=== PATIENT | female | born 1955 | race Hispanic/Latino ===

== ENCOUNTER 2025-03-23 05:21 | Emergency (ER) | payer OTHER ==
[2025-03-23] MEDS ORDERED: DIPHENHYDRAMINE 50 MG/ML VIAL ONE (05:24)
[2025-03-23] MEDS ORDERED: METHYLPREDNISOLONE 125 MG INJ ONE (05:24)
[2025-03-23] MEDS ORDERED: NA CHLORIDE 0.9% 1,000 ML ONE (05:24)
[2025-03-23] MEDS ORDERED: FAMOTIDINE 20 MG/2 ML VIAL IV ONE (05:24)
--- OUTSIDE RECORDS SUMMARY | 2025-03-23 05:26 | XMS REPORT | Continuity of Care Document ---
Author Name Unknown Address [address] [facility] [address] [place], [place] [id number] [place] [address] Address [address] [facility]. [address] [place] [address] Care Team Providers Care Retort Condenser Attendant Name Role Phone ALANNA CARREON Attending Clinician Unavailable JONNY RAINES Attending Clinician Unavailable TALI COELLO Attending Clinician Unavailable 1, [facility] Attending Clinic farhana Unavailable JULIA MOYA Attending Clinician Unavailable LAB90 Attending Clinician Unavailable MAC, EKG- Attending Clinician Unavailable TOMOGRAPHY, [facility] Attending Cl inician Unavailable MARCELA CARR Attending Clinician Unavailable SAUD LAI Attending Clinician Unavailable MD BERYL Attending Clinician Unavailab Bates Attending Clinician Unavailable PL, TECH 1 Attending Clinician Unavailable JENNA GONZALEZ Attending Clinician Unavailable MARCELO RHODES Attending Clinician Unavailable DALTON SHEFFIELD Attending Clinician Unavailable JONES DIALLO Attending Clinician Unava ilable ANDREW SPEARS Attending Clinician Unavail able LAB47 Attending Clinician Unavailable JOHN PARRISH Attending Clinician Unavailable CHRISTINA HARTMAN Attending Clinician Unavamone mazariegos AMBREEN_FARHANA Attending Clinician Unavailable A_Byrd Attending Clinician Unavailable AMBREEN_FARHANA Admitting Clinician Unavailable A_Byrd Admitting Clinician Unavailable Payers Payer Name Policy Type Policy Number Effective Date Expirati on Date Source [employer] [facility] [id number] HMO 7 [id number] 2024 00:00:00 [facility] FFS 5 [id number] 2023 00:00:00 HUMANA 3 [id number] 2014 00:00:00 Problems Condition Name Condition Details Condition Category Status Onset Date Resolution Date Last Treatment Date Treating Clinician Comments Source Urinary incontinen ce Urinary incontinen ce Disease Active 2023-11- 00:00: 00 Soledad Montanoold - Externa l Overweight (BMI 25.0-29.9) Overweight (BMI 25.0-29.9) Disease Active 06-29 00:00: 00 Soledad Montanoold - Externa l Right middle lobe pulmonary nodule Right middle lobe pulmonary nodule Disease Active 06-29 00:00: 00 Overview: Formattin g of this note might be different from the original. CT scan done 02/19/2024 Soledad Seybold - Externa l Shortness of breath Shortness of breath Disease Active 12-30 00:00: 00 Soledad Uriosteguiybold - Externa l Scoliosis Scoliosis Disease Active 12-30 00:00: 00 Soledad Seybold - Externa l Hepatic cyst Hepatic cyst Disease Active 11-10 00:00: 00 Overview: Formattin g of this note might be different from the original. CT scan 02/19/2024 Soledad Seybold - Externa l Nausea - Unchanged Nausea - Unchanged Disease Active 12-16 00:00: 00 Soledad Montanoold - Externa l Chronic pain of right knee - Not Controlled Chronic pain of right knee - Not Controlled Disease Active 2 00:00: 00 Soledad Seybold - Externa l Prediabete s - Unchanged Prediabete s - Unchanged Disease Active 2- 00:00: 00 Soledad Seybold - Externa l Primary hypertensi on - Not Controlled Primary hypertensi on - Not Controlled Disease Active 2- 00:00: 00 Soledad Seybold - Externa l History of hypertensi on History of hypertensi on Disease Active 2 00:00: 00 Soledad Seybold - Externa l History of prediabete s History of prediabete s Disease Active 2- 00:00: 00 Soledad Seybold - Externa l Osteoporos is Osteoporos is Disease Active 2013-11- 00:00: 00 Soledad Seybold - Externa l S/P hysterecto my S/P hysterecto my Disease Active 2013-11 00:00: 00 Sloedad Muñoz - Externa l SONALI on CPAP SONALI on CPAP Disease Active Soledad Muñoz - Externa l Social History Social Habit Start Date Stop Date Quantity Comments Source Gender identity 2022-12-13 08:13:06 Identifies as female gender (finding) Soledad Muñoz - External Sexual orientation 2022-12-13 08:13:06 Heterosexual (finding) Soledad Muñoz - External ASSERTION Not Soledad Muñoz - External History of Occupation Soledad Muñoz - External Alcoholic beverage intake 2025-02-16 00:00:00 2025-02-16 00:00:00 Current drinker of alcohol (finding) Soledad Muñoz - External History of Social function 2024-06-29 00:00:00 2024-06-29 00:00:00 Soledad Muñoz - External Education 2024-06-29 00:00:00 2024-06-29 00:00:00 16 Soledad Muñoz - External Alcohol Comment 2024-06-29 00:00:00 2024-06-29 00:00:00 occasionally Soledad Muñoz - External Alcohol intake 2023-12-30 00:00:00 2023-12-30 00:00:00 0 /d Soledad Muñoz - External Tobacco use and exposure 2014-09-12 00:00:00 2014-09-12 00:00:00 Smokeless tobacco non-user Soledad Muñoz - External Sex 2013-06-02 12:47:22 2013-06-02 12:47:22 Female (finding) Soledad Muñoz - External Sex assigned at 1955 00:00:00 1955 00:00:00 F Soledad Muñoz - External Smoking Status Start Date Stop Date Source Never smoked tobacco Soledad Cummings External Medications Ordered Medication Name Filled Medication Name Start Date Stop Date Current Medication? Ordering Clinician Indication Dosage Frequency Signature (SIG) Comments Components Source Albuterol HFA 108 (90 Base) MCG/ACT IN AERS 02-04 00:00: 00 Yes [id number] 2{puff} Q.25D Inhale 2 puffs into the lungs every 6 hours as needed for wheezing. Soledad pena Albuterol HFA 108 (90 Base) MCG/ACT IN AERS 2-04 00:00: 00 Yes [id number] 2{puff} Q.25D Inhale 2 puffs into the lungs every 6 hours as needed for wheezing or shortness of breath. Soledad pena Tobramycin- dexAMETHaso ne (TobraDex) 0.3-0.1 % ophthalmic Suspension 1- 00:00: 00 Yes 1 drop right eye 4 times per day for 7 days, then 2 times per day until it runs out. Soledad pena FLUTICASONE PROPIONATE, NASAL, 50 MCG/ACT nasal Suspension 2023-11 0-04 00:00: 00 Yes [id number] 50ug QD Use 1 spray (50 mcg total) in each nostril daily. Soledad pena Alendronate Sodium (Fosamax) 70 MG oral Tablet 9-27 00:00: 00 Yes [id number] 70mg Take 1 tablet (70 mg total) by mouth every 7 days. Soledad pena Oxybutynin Chloride 5 MG oral TABLET SR 24 HR 8-20 00:00: 00 Yes [id number] 5mg QD Take 1 tablet (5 mg total) by mouth daily as needed (urinary incontinen ce). Soledad pena FLUTICASONE PROPIONATE, NASAL, 50 MCG/ACT nasal Suspension 6-03 00:00: 00 Yes [id number] 50ug QD Use 1 spray (50 mcg total) in each nostril daily. Soledad pena Albuterol HFA 108 (90 Base) MCG/ACT IN AERS 3-29 00:00: 00 Yes [id number] 2{puff} Q.25D Inhale 2 puffs into the lungs every 6 hours as needed for wheezing or shortness of breath. Soledad pena Desloratadi ne 5 MG oral Tablet 1-04 00:00: 00 - 00:00 :00 No 1{tbl} Take 1 tablet (5 mg total) by mouth daily. Soledad pena Naproxen Sodium (Aleve) 220 MG oral Capsule 2022-11 16:02: 11 10-28 00:00 :00 No 220mg Take 1 capsule (220 mg total) by mouth in the morning and 1 capsule (220 mg total) in the evening. Take with meals. Soledad pena Doxycycline Hyclate 100 MG oral Tablet 2022-11 00:00: 00 Yes [id number] 100mg Take 1 tablet (100 mg total) by mouth 2 times daily. Soledad pena Benzonatate (Tessalon Perles) 100 MG oral Capsule 2022-11 00:00: 00 Yes [id number] 100mg Q.[id number] 3D Take 1 capsule (100 mg total) by mouth 3 times daily as needed for cough. oSledad pena FLUTICASONE PROPIONATE, NASAL, 50 MCG/ACT nasal Suspension 2022-11 00:00: 00 Yes [id number] 50ug Use 1 spray (50 mcg total) in each nostril daily. Soledad pena Albuterol HFA 108 (90 Base) MCG/ACT IN AERS 2022-11 00:00: 00 Yes [id number] 2{puff} Q.25D Inhale 2 puffs into the lungs every 6 hours as needed for wheezing. Soledad pena Montelukast (Singulair) 10 MG oral Tablet tablet 2022-11 00:00: 00 06-29 00:00 :00 No [id number] 10mg QD Take 1 tablet (10 mg total) by mouth nightly. Soledad pena Naproxen Sodium (Aleve) 220 MG oral Capsule 2022-11 11:20: 39 Yes 220mg Take 1 capsule (220 mg total) by mouth in the morning and 1 capsule (220 mg total) in the evening. Take with meals. Soledad pena Desloratadi ne 5 MG oral Tablet 2022-11 00:00: 00 Yes [id number] 5mg Take 1 tablet (5 mg total) by mouth daily. Soledad pena Azithromyci n 250 MG oral Tablet 2022-11 1-10 00:00: 00 09-25 05:59 :00 No [id number] Take 2 tablets by mouth on day 1 then 1 tablet by mouth daily for 4 days thereafter .. Soledad pena Ondansetron (ZOFRAN) 4 MG oral TABLET DISPERSIBLE 2022-11 0-26 00:00: 00 Yes [id number] DISSOLVE ONE (1) TABLET BY MOUTH EVERY 8 HOURS NEEDED FOR NAUSEA. Soledad pena LISINOPRIL- HCTZ 10-12.5 MG oral Tablet 7-11 00:00: 00 Yes [id number] TAKE ONE (1) TABLET(S) BY MOUTH ONCE A DAY. Soledad pena Naproxen Sodium (Aleve) 220 MG oral Capsule 5-02 15:26: 24 Yes 220mg Take 1 capsule (220 mg total) by mouth in the morning and 1 capsule (220 mg total) in the evening. Take with meals. Soledad pena predniSONE (DELTASONE) 5 MG oral Tablet 5-02 00:00: 00 10-28 00:00 :00 No [id number] 2 tabs qam x 3 days, then 1 tab qam x 3 days then stop Soledad pena LISINOPRIL- HCTZ 10-12.5 MG oral Tablet 4-06 00:00: 00 Yes [id number] 1{tbl} Take 1 tablet by mouth daily Soledad pena Ondansetron (ZOFRAN) 4 MG oral TABLET DISPERSIBLE 4-06 00:00: 00 Yes [id number] 4mg Q.[id number] 3D Take 1 tablet (4 mg total) by mouth every 8 hours as needed for nausea Soledad pena Semaglutide (1 mg/dose) 2 mg/1.5 mL SQ Solution Pen-Injecto r 4-06 00:00: 00 10-28 00:00 :00 No [id number] 1mg Inject 1 mg into the skin once a week Soledad pena Methylpredn isolone Acetate (Depo-Medro l) [40 mg/mL] - Physician Marium macario ([id number]) 01-23 14:00: 00 01-23 13:56 :00 No [id number] 80mg Soledad pena Semaglutide (0.25 or 0.5 mg/dose) 2 mg/1.5 mL SQ Solution Pen-Injecto r 01-16 00:00: 00 02-13 00:00 :00 No [id number] .5mg Inject 0.5 mg into the skin once a week Soledad pena LISINOPRIL- HCTZ 10-12.5 MG oral Tablet 01-13 00:00: 00 Yes [id number] TAKE ONE (1) TABLET(S) BY MOUTH ONCE A DAY. Soledad pena Lisinopril 5 MG oral Tablet 01-02 00:00: 00 01-16 00:00 :00 No Soledad pena LISINOPRIL- HCTZ 10-12.5 MG oral Tablet 12-16 00:00: 00 Yes [id number] 1{tbl} Take 1 tablet by mouth daily Soledad pena Semaglutide (0.25 or 0.5 mg/dose) 2 mg/1.5 mL SQ Solution Pen-Injecto r - 00:00: 00 Yes [id number] .25mg Inject 0.25 mg into the skin once a week Soledad pena Celecoxib (CeleBREX) 200 MG oral Capsule 2- 00:00: 00 10-28 00:00 :00 No [id number] 200mg Take 1 capsule (200 mg total) by mouth 2 times daily Soledad pena Ondansetron (ZOFRAN) 4 MG oral TABLET DISPERSIBLE 2- 00:00: 00 02-13 00:00 :00 No [id number] 4mg Q.[id number] 3D Take 1 tablet (4 mg total) by mouth every 8 hours as needed for nausea Soledad pena Lisinopril 5 MG oral Tablet 1-28 00:00: 00 12-16 00:00 :00 No 5mg Take 5 mg by mouth daily Soledad pena Meloxicam 15 MG oral Tablet 1-27 00:00: 00 12-16 00:00 :00 No 15mg Take 15 mg by mouth daily Soledad pena Vitamin D, Ergocalcife rol, 1.25 MG (64754 UT) oral Capsule - 00:00: 00 01-23 00:00 :00 No TAKE ONE (1) CAPSULE BY MOUTH ONCE WEEKLY. Soledad pena Alendronate Sodium 70 MG oral Tab 2014-11 00:00: 00 12-16 00:00 :00 No [id number] TAKE 1 TABLET BY MOUTH ONCE A WEEK, FOR BONES Soledad pena Immunizations Ordered Immunization Name Filled Immunization Name Date Status Comments Source Influenza Virus Vaccine, age 6 months and up 2015-09-14 00:00:00 Completed Soledad Muñoz - External Influenza Virus Vaccine, age 6 months and up 2015-09-14 00:00:00 Completed Soledad Muñoz - External Influenza Virus Vaccine, age 6 months and up 2015-09-14 00:00:00 Completed Soledad Muñoz - External Influenza Virus Vaccine, age 6 months and up 2015-09-14 00:00:00 Completed Soledad Muñoz - External Influenza Virus Vaccine, age 6 months and up 2015-09-14 00:00:00 Completed Soledad Muñoz - External Influenza Virus Vaccine, age 6 months and up 2014-09-12 00:00:00 Completed Soledad Muñoz - External Tdap- (Boostrix, Adacel) 2014-09-12 00:00:00 Completed Soledad Muñoz - External Influenza Virus Vaccine, age 6 months and up 2014-09-12 00:00:00 Completed Soledad Muñoz - External Tdap- (Boostrix, Adacel) 2014-09-12 00:00:00 Completed Soledad Muñoz - External Influenza Virus Vaccine, age 6 months and up 2014-09-12 00:00:00 Completed Soledad Seybold - External Tdap- (Boostrix, Adacel) 2014-09-12 00:00:00 Completed Soledad Seybold - External Influenza Virus Vaccine, age 6 months and up 2014-09-12 00:00:00 Completed Soledad Seybold - External Tdap- (Boostrix, Adacel) 2014-09-12 00:00:00 Completed Soledad Seybold - External Influenza Virus Vaccine, age 6 months and up 2014-09-12 00:00:00 Completed Soledad Seybold - External Tdap- (Boostrix, Adacel) 2014-09-12 00:00:00 Completed Soledad Seybold - External Influenza Virus Vaccine, age 6 months and up Unknown Completed Soledad Seybold - External Tdap- (Boostrix, Adacel) Unknown Completed Soledad Seybold - External Influenza Virus Vaccine, age 6 months and up Unknown Completed Soledad Seybold - External Tdap- (Boostrix, Adacel) Unknown Completed Soledad Seybold - External Influenza Virus Vaccine, age 6 months and up Unknown Completed Soledad Seybold - External Tdap- (Boostrix, Adacel) Unknown Completed Soledad Seybold - External Influenza Virus Vaccine, age 6 months and up Unknown Completed Soledad Seybold - External Tdap- (Boostrix, Adacel) Unknown Completed Soledad Seybold - External Influenza Virus Vaccine, age 6 months and up Unknown Completed Soledad Seybold - External Tdap- (Boostrix, Adacel) Unknown Completed Soledad Seybold - External Influenza Virus Vaccine, age 6 months and up Unknown Completed Soledad Seybold - External Tdap- (Boostrix, Adacel) Unknown Completed Soledad Seybold - External Influenza Virus Vaccine, age 6 months and up Unknown Completed Soledad Seybold - External Tdap- (Boostrix, Adacel) Unknown Completed Soledad Seybold - External Influenza Virus Vaccine, age 6 months and up Unknown Completed Soledad Seybold - External Tdap- (Boostrix, Adacel) Unknown Completed Soledad Seybold - External Influenza Virus Vaccine, age 6 months and up Unknown Completed Soledad Seybold - External Tdap- (Boostrix, Adacel) Unknown Completed Soledad Seybold - External Influenza Virus Vaccine, age 6 months and up Unknown Completed Soledad Seybold - External Tdap- (Boostrix, Adacel) Unknown Completed Soledad Seybold - External Influenza Virus Vaccine, age 6 months and up Unknown Completed Soledad Seybold - External Tdap- (Boostrix, Adacel) Unknown Completed Soledad Seybold - External Influenza Virus Vaccine, age 6 months and up Unknown Completed Soledad Seybold - External Tdap- (Boostrix, Adacel) Unknown Completed Soledad Seybold - External Influenza Virus Vaccine, age 6 months and up Unknown Completed Soledad Seybold - External Tdap- (Boostrix, Adacel) Unknown Completed Soldead Seybold - External Influenza Virus Vaccine, age 6 months and up Unknown Completed Soledad Seybold - External Tdap- (Boostrix, Adacel) Unknown Completed Soledad Seybold - External Vital Signs Vital Name Observation Time Observation Value Comments S ource Systolic blood pressure 2024-09-29 14:15:00 102 mm[Hg] Soledad Seybo ld - External Diastolic blood pressure 2024-09-29 14:15:00 70 mm[Hg] Soledad Seybo ld - External Heart rate 2024-09-29 14:15:00 74 /min Kel y Seybold - External Body temperature 2024-09-29 14:15:00 35.89 Felicity Soledad Seybold - External Respiratory rate 2024-09-29 14:15:00 18 /min Soledad Uriosteguiybold - External Body height 2024-09-29 14:15:00 157.5 cm Pearl rogers Seybold - External Body weight 2024-09-29 14:15:00 73.483 kg Pearl ey Seybold - External BMI 2024-09-29 14:15:00 29.63 kg/m2 Pearl ey Seybold - External Oxygen saturation in Arterial blood by Pulse oximetry 2024-09-29 14:15:00 100 /min Soledad Seybo ld - External Systolic blood pressure 2024-06-29 13:00:00 124 mm[Hg] Soledad Seybo ld - External Diastolic blood pressure 2024-06-29 13:00:00 70 mm[Hg] Soledad Seybo ld - External Heart rate 2024-06-29 13:00:00 68 /min Kelse y Seybold - External Body temperature 2024-06-29 13:00:00 36.61 Felicity Soledad Seybold - External Respiratory rate 2024-06-29 13:00:00 20 /min Soledad Seybold - External Body height 2024-06-29 13:00:00 157.5 cm Pearl ey Seybold - External Body weight 2024-06-29 13:00:00 70.988 kg Pearl ey Seybold - External BMI 2024-06-29 13:00:00 28.62 kg/m2 Paerl ey Seybold - External Oxygen saturation in Arterial blood by Pulse oximetry 2024-06-29 13:00:00 98 /min Soledad Seybo ld - External Systolic blood pressure 2024-06-24 14:17:00 118 mm[Hg] Soledad Seybo ld - External Diastolic blood pressure 2024-06-24 14:17:00 68 mm[Hg] Soledad Seybo ld - External Heart rate 2024-06-24 14:17:00 68 /min Kelse y Seybold - External Body temperature 2024-06-24 14:17:00 37 Felicity Soledad Seybold - External Respiratory rate 2024-06-24 14:17:00 18 /min Soledad Seybold - External Body height 2024-06-24 14:17:00 162.6 cm Pearl ey Seybold - External Body weight 2024-06-24 14:17:00 72.122 kg Pearl ey Seybold - External BMI 2024-06-24 14:17:00 27.29 kg/m2 Pearl ey Seybold - External Oxygen saturation in Arterial blood by Pulse oximetry 2024-06-24 14:17:00 97 /min Soledad Seybo ld - External Systolic blood pressure 2023-12-30 15:57:00 112 mm[Hg] Soledad Seybo ld - External Diastolic blood pressure 2023-12-30 15:57:00 67 mm[Hg] Soledad Seybo ld - External Heart rate 2023-12-30 15:57:00 72 /min Kelse y Seybold - External Body temperature 2023-12-30 15:57:00 36.67 Felicity Soledad Seybold - External Respiratory rate 2023-12-30 15:57:00 20 /min Soledad Seybold - External Body height 2023-12-30 15:57:00 162.6 cm Pearl ey Seybold - External Body weight 2023-12-30 15:57:00 68.947 kg Pearl ey Seybold - External BMI 2023-12-30 15:57:00 26.09 kg/m2 Pearl ey Seybold - External Oxygen saturation in Arterial blood by Pulse oximetry 2023-12-30 15:57:00 98 /min Soledad Seybo ld - External Systolic blood pressure 2023-12-19 16:08:00 137 mm[Hg] Soledad Seybo ld - External Diastolic blood pressure 2023-12-19 16:08:00 76 mm[Hg] Soledad Seybo ld - External Heart rate 2023-12-19 16:08:00 65 /min Kelse y Seybold - External Body temperature 2023-12-19 16:08:00 36.28 Felicity Soledad Seybold - External Respiratory rate 2023-12-19 16:08:00 16 /min Soledad Seybold - External Body height 2023-12-19 16:08:00 162.6 cm Pearl ey Seybold - External Body weight 2023-12-19 16:08:00 66.225 kg Pearl ey Seybold - External BMI 2023-12-19 16:08:00 25.06 kg/m2 Pearl ey Seybold - External Oxygen saturation in Arterial blood by Pulse oximetry 2023-12-19 16:08:00 99 /min Soledad Seybo ld - External Systolic blood pressure 2023-10-28 21:42:00 125 mm[Hg] Soledad Seybo ld - External Diastolic blood pressure 2023-10-28 21:42:00 94 mm[Hg] Soledad Seybo ld - External Heart rate 2023-10-28 21:42:00 83 /min Kelse y Seybold - External Body temperature 2023-10-28 21:42:00 37 Felicity Soledad Seybold - External Respiratory rate 2023-10-28 21:42:00 20 /min Soledad Seybold - External Body height 2023-10-28 21:42:00 162.6 cm Pearl ey Seybold - External Body weight 2023-10-28 21:42:00 65.772 kg Pearl ey Seybold - External BMI 2023-10-28 21:42:00 24.89 kg/m2 Pearl ey Seybold - External Oxygen saturation in Arterial blood by Pulse oximetry 2023-10-28 21:42:00 99 /min Soledad Seybo ld - External Systolic blood pressure 2023-09-19 17:19:00 114 mm[Hg] Soledad Seybo ld - External Diastolic blood pressure 2023-09-19 17:19:00 65 mm[Hg] Soledad Seybo ld - External Heart rate 2023-09-19 17:19:00 70 /min Kelse y Seybold - External Body temperature 2023-09-19 17:19:00 36.39 Felicity Soledad Seybold - External Respiratory rate 2023-09-19 17:19:00 15 /min Soledad Seybold - External Body height 2023-09-19 17:19:00 162.6 cm Pearl ey Seybold - External Body weight 2023-09-19 17:19:00 66.588 kg Pearl ey Seybold - External BMI 2023-09-19 17:19:00 25.20 kg/m2 Pearl ey Seybold - External Oxygen saturation in Arterial blood by Pulse oximetry 2023-09-19 17:19:00 99 /min Soledad Seybo ld - External Systolic blood pressure 2023-03-11 20:21:00 128 mm[Hg] Soledad Seybo ld - External Diastolic blood pressure 2023-03-11 20:21:00 80 mm[Hg] Soledad Seybo ld - External Heart rate 2023-03-11 20:21:00 72 /min Kelse y Seybold - External Respiratory rate 2023-03-11 20:21:00 16 /min Soledad Seybold - External Body height 2023-03-11 20:21:00 163.8 cm Pearl ey Seybold - External Body weight 2023-03-11 20:21:00 75.751 kg Pearl ey Seybold - External BMI 2023-03-11 20:21:00 28.22 kg/m2 Pearl ey Seybold - External Systolic blood pressure 2023-02-13 12:54:00 146 mm[Hg] Soledad Seybo ld - External Diastolic blood pressure 2023-02-13 12:54:00 64 mm[Hg] Soledad Seybo ld - External Heart rate 2023-02-13 12:54:00 82 /min Kelse y Seybold - External Body temperature 2023-02-13 12:54:00 36.39 Felicity Soledad Seybold - External Respiratory rate 2023-02-13 12:54:00 14 /min Soledad Seybold - External Body height 2023-02-13 12:54:00 163.8 cm Pearl ey Seybold - External Body weight 2023-02-13 12:54:00 78.926 kg Pearl ey Seybold - External BMI 2023-02-13 12:54:00 29.41 kg/m2 Pearl ey Seybold - External Systolic blood pressure 2023-01-23 13:36:00 108 mm[Hg] Soledad Seybo ld - External Diastolic blood pressure 2023-01-23 13:36:00 72 mm[Hg] Soledad Seybo ld - External Heart rate 2023-01-23 13:36:00 72 /min Kelse y Seybold - External Respiratory rate 2023-01-23 13:36:00 16 /min Soledad Seybold - External Body height 2023-01-23 13:36:00 163.8 cm Pearl ey Seybold - External Body weight 2023-01-23 13:36:00 79.379 kg Pearl ey Seybold - External BMI 2023-01-23 13:36:00 29.57 kg/m2 Pearl ey Seybold - External Systolic blood pressure 2023-01-16 14:37:00 112 mm[Hg] Soledad Seybo ld - External Diastolic blood pressure 2023-01-16 14:37:00 72 mm[Hg] Soledad Seybo ld - External Heart rate 2023-01-16 14:37:00 85 /min Kelse y Seybold - External Body temperature 2023-01-16 14:37:00 36.39 Felicity Soledad Seybold - External Respiratory rate 2023-01-16 14:37:00 14 /min Soledad Seybold - External Body height 2023-01-16 14:37:00 162.6 cm Pearl ey Seybold - External Body weight 2023-01-16 14:37:00 81.194 kg Pearl ey Seybold - External BMI 2023-01-16 14:37:00 30.73 kg/m2 Pearl ey Seybold - External Systolic blood pressure 2022-12-16 14:25:00 164 mm[Hg] Soledad Seybo ld - External Diastolic blood pressure 2022-12-16 14:25:00 96 mm[Hg] Soledad Seybo ld - External Heart rate 2022-12-16 14:25:00 90 /min Jarrodse y Seybold - External Body temperature 2022-12-16 14:25:00 37 Felicity Soledad Seybold - External Respiratory rate 2022-12-16 14:25:00 14 /min Soledad Seybold - External Body height 2022-12-16 14:25:00 162.6 cm Pearl ey Seybold - External Body weight 2022-12-16 14:25:00 83.915 kg Pearl ey Seybold - External BMI 2022-12-16 14:25:00 31.76 kg/m2 Pearl ey Seybold - External Encounters Start Date/Time End Date/Time Encounter Type Admission Type [facility] Care Department Encounter ID Source 2025-03-30 09:20:00 2025-03-30 09:20:00 Outpatient ALANNA CARREON [id number] [facility] 2025-03-29 08:00:00 2025-03-29 08:00:00 Outpatient JONNY RAINES [id number] [facility] 2025-03-28 10:20:00 2025-03-28 10:20:00 Outpatient TALI COELLO [id number] [facility] 2025-03-28 10:00:00 2025-03-28 10:00:00 Outpatient TALI COELLO [id number] [facility] 2025-03-24 09:45:00 2025-03-24 09:45:00 Outpatient SOLEDAD MONTENEGRO [id number] [facility] 2025-02-24 09:15:00 2025-02-24 09:15:00 Outpatient SOLEDAD MONTENEGRO [id number] [facility] 2025-02-16 08:30:00 2025-02-16 08:30:00 Outpatient UDOETUK, ALANNA [facility]ONTENEGRO [id number] [facility] 2025-02-16 08:25:00 2025-02-16 08:25:00 Outpatient 1, OPTICAL SOLEDAD MONTENEGRO [id number] [facility] 2025-02-07 00:00:00 2025-02-07 00:00:00 Outpatient KAWAR, JULIASMITH MONTENEGRO [id number] [facility] 2025-02-04 00:00:00 2025-02-04 00:00:00 Outpatient PREZAS, JONNY [facility]ENEGRO [id number] [facility] 2025-02-04 00:00:00 2025-02-04 00:00:00 Outpatient KAWJULIA EASON SOLEDAD MONTENEGRO [id number] [facility] 2025-01-05 09:00:00 2025-01-05 09:00:00 Outpatient UDOETUK, ALANNANOAH [facility]GR[facility] [id number] [facility] 2025-01-05 08:50:00 2025-01-05 08:50:00 Outpatient UDOET, ALANNA [facility]ENEGR[facility] [id number] [facility] 2025-01-05 07:55:00 2025-01-05 07:55:00 Outpatient 1, OPTICAL [facility] MONTENEGRO [id number] [facility] 2024-12-15 09:30:00 2024-12-15 09:30:00 Outpatient UDOETUK, ALANNA MONTENEGRO [id number] [facility] 2024-12-11 00:00:00 2024-12-11 00:00:00 Outpatient PREZAS, JONNY MONTENEGRO [id number] [facility] 2024-12-10 09:30:00 2024-12-10 09:30:00 Outpatient LAB90 SOLEDAD MONTENEGRO [id number] [facility] 2024-12-09 00:00:00 2024-12-09 00:00:00 Outpatient UDOET, ALANNA MONTENEGRO [facility] [id number] [facility] 2024-12-08 10:10:00 2024-12-08 10:10:00 Outpatient UDOETUK, ALANNA [facility]AD [facility] [id number] [facility] 2024-12-07 09:45:00 2024-12-07 09:45:00 Outpatient UDOETUK, ALANNA [facility]EDAD MONTENEGRO [id number] [facility] 2024-12-06 11:15:00 2024-12-06 11:15:00 Outpatient MAC, EKG- SOLEDAD MONTENEGRO [id number] [facility] 2024-12-06 10:30:00 2024-12-06 10:30:00 Outpatient UDOETUK, ALANNA SOLEDAD MONTENEGRO [id number] [facility] 2024-12-06 10:10:00 2024-12-06 10:10:00 Outpatient 1, OPTICAL SOLEDAD MONTENEGRO [id number] [facility] 2024-12-06 00:00:00 2024-12-06 00:00:00 Outpatient UDOETUK, ALANNA [facility] MONTENEGRO [id number] [facility] 2024-12-03 13:10:00 2024-12-03 13:10:00 Outpatient UDOETUK, ALANNA [facility] MONTENEGRO [id number] [facility] 2024-12-03 13:00:00 2024-12-03 13:00:00 Outpatient TOMOGRAPHY, FBMDC SOLEDAD MONTENEGRO [id number] [facility] Seybold 2024-12-03 09:40:00 2024-12-03 09:40:00 Outpatient VU, MARCELA MONTENEGRO [id number] [facility] 2024-12-02 00:00:00 2024-12-02 00:00:00 Outpatient PREZAS, JONNY [facility] MONTENEGRO [id number] [facility] Seybold 2024-09-29 08:00:00 2024-09-29 08:00:00 Outpatient PREZAS, JONNY [facility] [id number] [facility] Seyb[facility]ana 2024-08-13 00:00:00 2024-08-13 00:00:00 Outpatient PREZAJONNY Martínez [facility] [id number] [facility] 2024-08-06 00:00:00 2024-08-06 00:00:00 Outpatient JONNY RAINES [facility] [id number] [facility] 2024-08-05 09:00:00 2024-08-05 09:00:00 Outpatient SOLEDAD [facility] [id number] [facility] Seybold 2024-07-30 09:40:00 2024-07-30 09:40:00 Outpatient SOLEDAD [facility] [id number] [facility] 2024-06-29 09:00:00 2024-06-29 09:00:00 Outpatient LABSienna [facility]AD MONTENEGRO [id number] [facility] Seybold 2024-06-29 08:00:00 2024-06-29 08:00:00 Outpatient PREZAJONNY Martínez [facility] [id number] [facility] 2024-06-24 09:30:00 2024-06-24 09:30:00 Outpatient SAUD LAI [id number] [facility] 2024-06-24 00:00:00 2024-06-24 00:00:00 Outpatient SAUD LAI [id number] [facility] 2024-06-24 00:00:00 2024-06-24 00:00:00 Outpatient SAUD LAI [id number] [facility] 2024-06-17 00:00:00 2024-06-17 00:00:00 Outpatient JULIA MOYA [id number] [facility] 2024-04-10 00:00:00 2024-04-10 00:00:00 Outpatient JONNY RAINES [facility] MONTENEGRO [id number] [facility] Seybold 2024-02-19 08:45:00 2024-02-19 08:45:00 Outpatient SOLEDAD MONTENEGRO [id number] [facility] Seybold 2024-02-06 00:00:00 2024-02-06 00:00:00 Outpatient JONNY RAINES [id number] [facility] Wanda 2024-01-29 09:00:00 2024-01-29 09:00:00 Outpatient SOLEDAD MONTENEGRO [id number] [facility] Wanda 2024-01-29 00:00:00 2024-01-29 00:00:00 Outpatient MD SOLEDAD LÓPEZ [id number] [facility] Wanda 2024-01-08 00:00:00 2024-01-08 00:00:00 Outpatient JULIA MOYA [id number] [facility]ad 2024-01-06 11:30:00 2024-01-06 11:30:00 Outpatient PLAB SOLEDAD MONTENEGRO [id number] [facility] Wanda 2024-01-02 09:05:00 2024-01-02 09:05:00 Outpatient LAB90 SOLEDAD MONTENEGRO [id number] [facility]ad Muñoz 2024-01-02 00:00:00 2024-01-02 00:00:00 Outpatient MD SOLEDAD LÓPEZ [id number] [facility] Wanda 2024-01-01 00:00:00 2024-01-01 00:00:00 Outpatient JULIA MOYA [id number] [facility] Wanda 2024-01-01 00:00:00 2024-01-01 00:00:00 Outpatient MD SOLEDAD LÓPEZ [id number] [facility] ybshana 2023-12-30 10:30:00 2023-12-30 10:30:00 Outpatient LAB90 SOLEDAD MONTENEGRO [id number] [facility] Seybshana 2023-12-30 10:00:00 2023-12-30 10:00:00 Outpatient JONNY RAINES [id number] [facility] Seyb[facility]ana 2023-12-22 10:00:00 2023-12-22 10:00:00 Outpatient CHOLO FENTON [id number] [facility] Seybold 2023-12-22 00:00:00 2023-12-22 00:00:00 Outpatient MD SOLEDAD LÓPEZ [id number] [facility] Seybshana 2023-12-19 10:30:00 2023-12-19 10:30:00 Outpatient MARELYYUMIJULIA [facility]AD MONTENEGRO [id number] [facility] Seyb[facility]ana 2023-12-19 09:30:00 2023-12-19 09:30:00 Outpatient MARELYYUMINABILSMITH MONTENEGRO [id number] [facility] Seyb[facility]ana 2023-12-11 10:30:00 2023-12-11 10:30:00 Outpatient CARLOS WEST [facility]AD MONTENEGRO [id number] [facility] Seybshana 2023-12-01 09:15:00 2023-12-01 09:15:00 Outpatient JONNY RAINES [id number] [facility] Seyb[facility]ana 2023-11-11 11:30:00 2023-11-11 11:30:00 Outpatient SOLEDAD MONTENEGRO [id number] [facility] 2023-11-11 11:00:00 2023-11-11 11:00:00 Outpatient CARMELOORESTESYOSSI MONTENEGRO [id number] [facility] 2023-11-06 14:00:00 2023-11-06 14:00:00 Outpatient CARMELOORESTESYOSSI MONTENEGRO [id number] [facility] 2023-11-05 14:30:00 2023-11-05 14:30:00 Outpatient CARMELOORESTESYOSSI MONTENEGRO [id number] [facility] 2023-10-30 00:00:00 2023-10-30 00:00:00 Outpatient MD [facility]AD LÓPEZ [id number] [facility] 2023-10-29 09:35:00 2023-10-29 09:35:00 Outpatient SOLEDAD MONTENEGRO [id number] [facility] Seybshana 2023-10-29 00:00:00 2023-10-29 00:00:00 Outpatient JONNY RAINES [id number] [facility] Seybold 2023-10-29 00:00:00 2023-10-29 00:00:00 Outpatient JONNY RAINESSEY [facility] [id number] [facility] Muñoz 2023-10-28 15:30:00 2023-10-28 15:30:00 Outpatient JONNY RAINES [facility] MONTENEGRO [id number] [facility] Muñoz 2023-10-28 00:00:00 2023-10-28 00:00:00 Outpatient DALTON SHEFFIELD [id number] [facility] Wanda 2023-09-19 11:30:00 2023-09-19 11:30:00 Outpatient UGO DIALLOAN [facility] MONTENEGRO [id number] [facility] Wanda 2023-09-02 00:00:00 2023-09-02 00:00:00 Outpatient DALTON SHEFFIELD [id number] [facility] 2023-05-20 00:00:00 2023-05-20 00:00:00 Outpatient DALTON SHEFFIELD [id number] [facility] 2023-03-20 00:00:00 2023-03-20 00:00:00 Outpatient ANDREW SPEARS [id number] [facility] 2023-03-13 00:00:00 2023-03-13 00:00:00 Outpatient ANDREW SPEARS [id number] [facility] 2023-03-12 00:00:00 2023-03-12 00:00:00 Outpatient DALTON SHEFFIELD [id number] [facility] shana 2023-03-11 16:15:00 2023-03-11 16:15:00 Outpatient ANDREW SPEARS [id number] [facility] 2023-03-11 15:45:00 2023-03-11 15:45:00 Outpatient PATRICK MONTENEGRO [id number] [facility] Seyb[facility]ana 2023-02-13 08:00:00 2023-02-13 08:00:00 Outpatient DALTON SHEFFIELD [id number] [facility] Seybshana 2023-02-13 00:00:00 2023-02-13 00:00:00 Outpatient DALTON SHEFFIELD [id number] [facility] Seybshana 2023-02-12 00:00:00 2023-02-12 00:00:00 Outpatient NETTIE DALTON MONTENEGRO [id number] [facility] 2023-02-04 15:00:00 2023-02-04 15:00:00 Outpatient ANDREW SPEARS [facility] MONTENEGRO [id number] [facility] 2023-01-23 08:40:00 2023-01-23 08:40:00 Outpatient SHIVANIDIVYAJOHN [facility]AD MONTENEGRO [id number] [facility] ybshana 2023-01-23 07:50:00 2023-01-23 07:50:00 Outpatient SOLEDAD MONTENEGRO [id number] [facility]ad ybshana 2023-01-23 07:45:00 2023-01-23 07:45:00 Outpatient SOLEDAD MONTENEGRO [id number] [facility] 2023-01-22 00:00:00 2023-01-22 00:00:00 Outpatient JOHN PARRISH [id number] [facility] 2023-01-16 09:15:00 2023-01-16 09:15:00 Outpatient LAB90 SOLEDAD MONTENEGRO [id number] [facility] 2023-01-16 08:30:00 2023-01-16 08:30:00 Outpatient NETTIE, DALTON MONTENEGRO [id number] [facility] 2023-01-13 08:30:00 2023-01-13 08:30:00 Outpatient NETTIE, DALTON MONTENEGRO [id number] [facility] 2023-01-02 15:25:00 2023-01-02 15:25:00 Outpatient LAB90 SOLEDAD MONTENEGRO [id number] [facility] Seybshana 2022-12-25 00:00:00 2022-12-25 00:00:00 Outpatient DALTON SHEFFIELD [id number] [facility] 2022-12-25 00:00:00 2022-12-25 00:00:00 Outpatient NETTIE, DALTON MONTENEGRO [id number] [facility] 2022-12-18 15:30:00 2022-12-18 15:30:00 Outpatient DALTON SHEFFIELDEUGENE MONTENEGRO [id number] [facility] 2022-12-18 00:00:00 2022-12-18 00:00:00 Outpatient DALTON SHEFFIELD [facility] [id number] [facility] 2022-12-18 00:00:00 2022-12-18 00:00:00 Outpatient DALTON SHEFFIELD [facility] [id number] [facility] 2022-12-16 09:25:00 2022-12-16 09:25:00 Outpatient LAB90 SOLEDAD SOLEDAD [id number] [facility]ad [facility] 2022-12-16 08:30:00 2022-12-16 08:30:00 Outpatient DALTON SHEFFIELD SOLEDAD MONTENEGRO [id number] [facility] 2022-12-16 00:00:00 2022-12-16 00:00:00 Outpatient MINNIE CHRISTINA MONTENEGRO [id number] [facility] 2022-06-05 00:00:00 2022-06-05 00:00:00 Outpatient [facility] [id number] [facility] 2021-05-01 11:09:00 2021-05-01 11:09:00 Outpatient A_Byrd [facility] [id number] [facility] Notes Date/Time Note Provider Source 2024-06-29 08:03:29 Chief Complaint Patient presents with Physical HRA Eboni Antonio LVN [facility] 2024-06-24 09:18:53 Chief Complaint Patient presents with Follow-Up Visit Follow up on SONALI Marylu Pizarro LVN [facility]
--- NOTE | 2025-03-23 06:41 | EDPHYS ---
Physician Documentation [facility] Name: Symone Carrillo Age: 69 yrs Sex: Female : 1955 Arrival Date: 03/23/2025 Time: 05:21 Bed DX4 Private MD: ED Physician Milton Medina HPI: 03/23 06:38 This 69 yrs old Female presents to ER via Ambulatory with complaints of sp4 Allergic Reaction. 20:07 69-year-old female presents with acute allergic reaction secondary to the wasp bite to sp4 the right posterior upper arm. Patient states she took 50 mg p.o. Benadryl at home with some relief.. 20:07 Patient reported at this time she has a right posterior arm rash redness itching and sp4 also feels short of breath.. Historical: - Allergies: 05:42 Wasps; vc1 - PMHx: 05:42 None; vc1 - PSHx: 05:42 Total abdominal hysterectomy; Tonsillectomy; Appendectomy; Cholecystectomy; vc1 - Immunization history:: Client reports having NOT received the Covid vaccine. Flu vaccine is not up to date. - Infectious Disease History:: Denies. - Social history:: Smoking status: Patient denies any tobacco usage or history of. - Family history:: not pertinent. ROS: 20:07 Constitutional: Negative for fever, chills, and weight loss, positive for itching sp4 redness swelling right posterior arm, positive for shortness of breath 20:07 All other systems are negative, Exam: 20:07 Constitutional: This is a well developed, well nourished patient who is awake, alert, sp4 and in no acute distress. Head/Face: Normocephalic, atraumatic. Eyes: Pupils equal round and reactive to light, extra-ocular motions intact. Lids and lashes normal. Conjunctiva and sclera are not injected. Cornea within normal limits. Periorbital areas with no swelling, redness, or edema. ENT: Nares patent. No nasal discharge, no septal abnormalities noted. Tympanic membranes are normal and external auditory canals are clear. Oropharynx with no redness, swelling, or masses, exudates, or evidence of obstruction, uvula midline. Mucous membranes moist. Neck: Trachea midline, no thyromegaly or masses palpated, and no cervical lymphadenopathy. Supple, full range of motion without nuchal rigidity, or vertebral point tenderness. Chest/axilla: Normal chest wall appearance and motion. Nontender with no deformity. No lesions are appreciated. Cardiovascular: Regular rate and rhythm with a normal S1 and S2. No gallops, murmurs, or rubs. Normal PMI, no JVD. No pulse deficits. Respiratory: Lungs have equal breath sounds bilaterally, clear to auscultation and percussion. No rales, rhonchi or wheezes noted. No increased work of breathing, no retractions or nasal flaring. Abdomen/GI: Soft, with normal bowel sounds. No distension or tympany. No guarding or rebound. No evidence of tenderness throughout. Back: No spinal tenderness. No costovertebral tenderness. Skin: Warm, dry with normal turgor. Normal color with small area of hives to right upper posterior arm MS/ Extremity: Pulses equal, no cyanosis. Neurovascular intact. Full, normal range of motion. Positive for right posterior upper arm redness secondary to wasp bite Neuro: Awake and alert, GCS 15, oriented to person, place, time, and situation. Cranial nerves II-XII grossly intact. Motor strength 5/5 in all extremities. Sensory grossly intact. Psych: Awake, alert, with orientation to person, place and time. Behavior, mood, and affect are within normal limits Vital Signs: 05:39 BP 125 / 115; Pulse 74; Resp 26; Temp 98.1; Pulse Ox 97% ; Weight 94.8 kg; Height 5 ft. vc1 8 in. ; Pain 0/10; 06:53 BP 122 / 88; Pulse 72; Resp 20; Pulse Ox 100% ; vc1 05:39 Body Mass Index 31.78 (94.80 kg, 172.72 cm) vc1 05:39 Pain Scale: Adult vc1 [place] Coma Score: 20:07 Eye Response: spontaneous(4). Motor Response: obeys commands(6). Verbal Response: sp4 oriented(5). Total: 15. MDM: 06:40 Medical Screening Exam initiated sp4 20:09 Differential diagnosis: anaphylaxis, angioedema, bronchospasm, Status Asthmaticus sp4 urticaria. Data reviewed: vital signs, nurses notes. 20:09 Consideration of Admission/Observation Escalation of care including sp4 admission/observation considered. ED course: Patient reports improvement after medications. Patient stable for discharge home.. 03/23 05:27 Order name: IV Saline Lock; Complete Time: 05:38 sp4 Administered Medications: 05:37 Drug: diphenhydrAMINE IVP 50 mg IVP once {Note: pt took 2 pills at home.} Route: IVP; vc1 Site: left wrist; 05:38 Drug: Famotidine IVP 20 mg IVP once; dilute with 10 mL 0.9% NaCl; give over 2 minutes vc1 Route: IVP; Site: right wrist; 05:38 Drug: MethylPrednisoLONE IVP 125 mg IVP once Route: IVP; Site: right wrist; vc1 05:38 Drug: NS 0.9% IV 1000 ml IV at 1 bolus Per protocol; to be given as a bolus over 60 vc1 minutes Route: IV; Rate: 1 bolus; Site: right wrist; Disposition Summary: 03/23/25 06:40 Discharge Ordered Notes: Location: Home sp4 Problem: new sp4 Symptoms: have improved sp4 Condition: Stable sp4 Diagnosis - Acute allergic reaction secondary to the wasp bite, acute allergic hives sp4 Followup: sp4 - With: Private Physician - When: 7 - 10 days - Reason: Recheck today's complaints Discharge Instructions: - Discharge Summary Sheet sp4 - Hives, Anra-ab-Bkst sp4 Forms: - Patient Portal Instructions sp4 Prescriptions: - EpiPen 0.3 mg/0.3 mL Injection Auto-Injector - administer 0.3 milligram INTRAMUSCULAR route every 5 to 15 minutes as needed sp4 for hypersensitivity reaction; do not exceed 3 doses per episode; 2 Pack; Refills: 0, Product Selection Permitted - Prednisone 20 mg Oral Tablet - take 2 tablets ORAL route once daily for 5 days; 10 tablet; Refills: 0, Product sp4 Selection Permitted Signatures: Dispatcher [employer] Fany Verma RN RN vc1 Milton Medina MD MD sp4
--- NOTE | 2025-03-23 06:41 | ER ---
Nurse's Notes [facility] Name: Symone Carrillo Age: 69 yrs Sex: Female : 1955 Arrival Date: 03/23/2025 Time: 05:21 Bed DX4 Private MD: Diagnosis: Acute allergic reaction secondary to the wasp bite, acute allergic hives Presentation: 03/23 05:39 Chief complaint: Patient states: stung by a wasp, arms tingling, short of breath. vc1 Coronavirus screen: Client denies travel out of the [place] in the last 14 days. At this time, the client does not indicate any symptoms associated with coronavirus-19. Ebola Screen: Patient negative for fever greater than or equal to 101.5 degrees Fahrenheit, and additional compatible Ebola Virus Disease symptoms Patient denies exposure to infectious person. Patient denies travel to an Ebola-affected area in the 21 days before illness onset. No symptoms or risks identified at this time. Onset: The symptoms/episode began/occurred suddenly. Anaphylaxis evaluation, the patient reports or I have noted the following symptoms which indicate a significant risk of anaphylaxis: lightheadedness shortness of breath tachypnea . The patient has been moved to a treatment room and the charge nurse or attending physician has been notified. Initial Sepsis Screen: Does the patient meet any 2 criteria? No. Patient's initial sepsis screen is negative. Does the patient have a suspected source of infection? No. Patient's initial sepsis screen is negative. Risk Assessment: Do you want to hurt yourself or someone else? Patient reports no desire to harm self or others. Onset of symptoms was March 23, 2025. 05:39 Method Of Arrival: Ambulatory vc1 05:39 Acuity: TOSHIA 3 vc1 Triage Assessment: 05:44 General: Appears distressed, uncomfortable, well groomed, well developed, well vc1 nourished, Behavior is cooperative, anxious. Pain: Denies pain. EENT: No deficits noted. No signs and/or symptoms were reported regarding the EENT system. Neuro: Level of Consciousness is awake, alert, obeys commands, Oriented to person, place, time, situation, Appropriate for age. Cardiovascular: Capillary refill < 3 seconds Patient's skin is warm and dry. Respiratory: Airway is patent Trachea midline Respiratory effort is labored, Respiratory pattern is symmetrical, tachypnea. GI: No deficits noted. No signs and/or symptoms were reported involving the gastrointestinal system. : No deficits noted. No signs and/or symptoms were reported regarding the genitourinary system. Derm: Skin is intact, is healthy with good turgor, Skin is dry, Skin is normal, Skin temperature is warm. Musculoskeletal: Circulation, motion, and sensation intact. Range of motion: intact in all extremities. Historical: - Allergies: 05:42 Wasps; vc1 - PMHx: 05:42 None; vc1 - PSHx: 05:42 Total abdominal hysterectomy; Tonsillectomy; Appendectomy; Cholecystectomy; vc1 - Immunization history:: Client reports having NOT received the Covid vaccine. Flu vaccine is not up to date. - Infectious Disease History:: Denies. - Social history:: Smoking status: Patient denies any tobacco usage or history of. - Family history:: not pertinent. Screenin:43 [facility] ED Fall Risk Assessment (Adult) History of falling in the last 3 months, vc1 including since admission No falls in past 3 months (0 pts) Confusion or Disorientation No (0 pts) Intoxicated or Sedated No (0 pts) Impaired Gait No (0 pts) Mobility Assist Device Used No (0 pt) Altered Elimination No (0 pt) Score/Fall Risk Level 0 - 2 = Low Risk Oriented to surroundings, Maintained a safe environment, Educated pt \T\ family on fall prevention, incl call for assistance when getting out of bed, Hourly rounding (assess needs \T\ fall precautionary measures) done. Abuse screen: Denies threats or abuse. Nutritional screening: No deficits noted. Tuberculosis screening: No symptoms or risk factors identified. Assessment: 06:53 Reassessment: Patient appears in no apparent distress at this time. Patient and/or vc1 family updated on plan of care and expected duration. Pain level reassessed. Patient is alert, oriented x 3, equal unlabored respirations, skin warm/dry/pink. Patient states feeling better. Patient states symptoms have improved. Respiratory: Airway is patent Respiratory effort is even, unlabored, Respiratory pattern is regular, symmetrical, Breath sounds are clear bilaterally. Vital Signs: 05:39 BP 125 / 115; Pulse 74; Resp 26; Temp 98.1; Pulse Ox 97% ; Weight 94.8 kg; Height 5 ft. vc1 8 in. ; Pain 0/10; 06:53 BP 122 / 88; Pulse 72; Resp 20; Pulse Ox 100% ; vc1 05:39 Body Mass Index 31.78 (94.80 kg, 172.72 cm) vc1 05:39 Pain Scale: Adult vc1 [place] Coma Score: 20:07 Eye Response: spontaneous(4). Motor Response: obeys commands(6). Verbal Response: sp4 oriented(5). Total: 15. ED Course: 05:25 Patient arrived in ED. gm2 05:26 Milton Medina MD is Attending Physician. sp4 05:42 Triage completed. vc1 05:43 Patient has correct armband on for positive identification. Provided Education on: Plan vc1 of care. 05:46 Arm band placed on right wrist. vc1 06:53 No provider procedures requiring assistance completed. IV discontinued, intact, vc1 bleeding controlled, No redness/swelling at site. Pressure dressing applied. Administered Medications: 05:37 Drug: diphenhydrAMINE IVP 50 mg IVP once {Note: pt took 2 pills at home.} Route: IVP; vc1 Site: left wrist; 05:38 Drug: Famotidine IVP 20 mg IVP once; dilute with 10 mL 0.9% NaCl; give over 2 minutes vc1 Route: IVP; Site: right wrist; 05:38 Drug: MethylPrednisoLONE IVP 125 mg IVP once Route: IVP; Site: right wrist; vc1 05:38 Drug: NS 0.9% IV 1000 ml IV at 1 bolus Per protocol; to be given as a bolus over 60 vc1 minutes Route: IV; Rate: 1 bolus; Site: right wrist; Medication: 05:44 VIS not applicable for this client. vc1 Outcome: 06:40 Discharge ordered by . sp4 06:53 Discharged to home ambulatory, vc1 06:53 Condition: stable 06:53 Discharge instructions given to patient, Instructed on discharge instructions, follow up and referral plans. medication usage, Demonstrated understanding of instructions, follow-up care, medications, Prescriptions given X 2, 06:54 Patient left the ED. vc1 Signatures: Fany Araya RN RN vc1 Milton Medina MD MD sp4 Erendira Mohr 2
[2025-03-23 07:09] VITALS: TEMP 98.1
[2025-03-23 07:10] VITALS: BP 122/88; O2SAT 100
== END 2025-03-23 06:54 | disposition home or self-care (01) ==
LOC: ER 05:21
DX: L50.0 Allergic urticaria (principal); T63.461A Toxic effect of venom of wasps, accidental (unintentional), initial encounter; Z91.038 Other insect allergy status
CPT/HCPCS: 99284; J1200; J2919; J7030